=== PATIENT | male | born 1960 | race Caucasian/White ===

== ENCOUNTER 2017-09-25 11:51 | Day surgery (SDC) | payer BC, OTHER ==
[~2017-09-25] VITALS: Ht 188 cm; Wt 96.6 kg
[~2017-09-25 11:51] MED LIST: ANDR1.62 TOP; LISI-542 PO
[2017-09-25] MEDS ORDERED: NS 1,000 ML IV ONE (12:00)
[2017-09-25] MEDS ORDERED: LIDOCAINE 2% INJ 100 MG/5 ML SDV (FOR ANES.) As Ordered ONE (12:28)
[2017-09-25] MEDS ORDERED: PROPOFOL 200 MG/20 ML VIAL As Ordered ONE (12:28)
--- NOTE | 2017-09-25 12:36 | ROOR ---
Patient Name: Omid Roland Procedure Date: 09/25/2017 12:17 PM Date of : 1960 Age: 57 Room: [facility] Gender: Male Note Status: Finalized Procedure: Colonoscopy Indications: Rectal bleeding Providers: Claus Johnson Jr, MD Referring MD: Khadijah Avila DO Requesting Provider: Medicines: Propofol per Anesthesia Complications: No immediate complications. Procedure: Pre-Anesthesia Assessment: - Prior to the procedure, a History and Physical was performed, and patient medications and allergies were reviewed. The patient is competent. The risks and benefits of the procedure and the sedation options and risks were discussed with the patient. All questions were answered and informed consent was obtained. Patient identification and proposed procedure were verified by the physician and the nurse in the pre-procedure area and in the procedure room. Mental Status Examination: alert and oriented. Airway Examination: normal oropharyngeal airway and neck mobility. Respiratory Examination: clear to auscultation. CV Examination: normal. ASA Grade Assessment: II - A patient with mild systemic disease. After reviewing the risks and benefits, the patient was deemed in satisfactory condition to undergo the procedure. The anesthesia plan was to use moderate sedation / analgesia (conscious sedation). Immediately prior to administration of medications, the patient was re-assessed for adequacy to receive sedatives. The heart rate, respiratory rate, oxygen saturations, blood pressure, adequacy of pulmonary ventilation, and response to care were monitored throughout the procedure. The physical status of the patient was re-assessed after the procedure. The Colonoscope was introduced through the anus and advanced to the cecum, identified by appendiceal orifice and ileocecal valve. The colonoscopy was performed without difficulty. The patient tolerated the procedure well. The quality of the bowel preparation was adequate and good. Findings: Non-bleeding external and internal hemorrhoids were found during endoscopy. The hemorrhoids were moderate, Grade II (internal hemorrhoids that prolapse but reduce spontaneously) and Grade III (internal hemorrhoids that prolapse but require manual reduction). The rectum, recto-sigmoid colon, sigmoid colon, descending colon, transverse colon, ascending colon, cecum, appendiceal orifice and ileocecal valve appeared normal. Impression: - Non-bleeding external and internal hemorrhoids. - The rectum, recto-sigmoid colon, sigmoid colon, descending colon, transverse colon, ascending colon, cecum, appendiceal orifice and ileocecal valve are normal. - No specimens collected. Recommendation: - Discharge patient to home (ambulatory). - Repeat colonoscopy in 5 years for surveillance. Claus Johnson MD Claus Johnson Jr, MD 09/25/2017 12:36:11 PM This report has been signed electronically. Number of Addenda: 0 Note Initiated On: 09/25/2017 12:17 PM Estimated Blood Loss: Estimated blood loss: none.
[2017-09-25 12:51] VITALS: BP 137/81
== END 2017-09-25 13:06 | disposition home or self-care (01) ==
LOC: M OPP 11:51 → EDSTATUS 13:00 → M OPP 13:06
PROVIDERS: ATTEND Surgery
DX: K64.1 Second degree hemorrhoids (principal); K64.2 Third degree hemorrhoids; I10 Essential (primary) hypertension; C62.90 Malignant neoplasm of unspecified testis, unspecified whether descended or undescended; F17.290 Nicotine dependence, other tobacco product, uncomplicated; Z79.899 Other long term (current) drug therapy; Z88.0 Allergy status to penicillin; Z80.0 Family history of malignant neoplasm of digestive organs; Z86.010 Personal history of colon polyps

== ENCOUNTER → 2021-11-01 | Outpatient (CLI) | payer OTHER ==
[~2021-11-01] MED LIST changes: -LISI-542 PO; +LISI-898 PO
--- NOTE | 2021-11-02 06:43 | ECHO ---
ECHOCARDIOGRAM DATE OF PROCEDURE: 11/01/2021 Age: 61 Gender: Male Height: 74 inches Weight: 213 pounds Body Surface Area: 2.23 sq m Outpatient REFERRING PHYSICIAN: Khadijah Avila MD INDICATION: Palpitations MEASUREMENTS: 2D Measurements: RV - 4.1 cm LV - 4.9 cm Septum 1.2 cm Posterior wall 1.2 cm Aortic Root 3.3 cm LA - 4.1 cm LVEF 75% Doppler Measurements: AV - 1.5 m/s LVOT - 1.2 m/s LVOT diameter 2.2 cm MV-E 89, A 89, E/A ratio 1 Early mitral deceleration time 215 msec E prime medial 8, A prime medial 12, E prime lateral 13 PV 0.9 m/s Pulmonary artery acceleration time 116 msec RVSP 41 mmHg IVC - 1.8 cm COMMENTS: Normal sinus rhythm without intraventricular conduction disturbance. M-mode and 2-dimensional echocardiography was performed with pulse, continuous wave, color flow, and tissue Doppler studies. Borderline left ventricular hypertrophy with hyperkinetic wall motion. Mildly dilated left atrium with currently normal Doppler assessment of left ventricular (LV) diastolic function and estimated mean left atrial pressure. Borderline dilated right heart chambers with normal wall motion and Doppler evidence of moderate pulmonary hypertension. Normal inferior vena cava (IVC) size and collapse against an elevated central venous pressure. Normal aortic dimensions. Subtle aortic valvular sclerosis without stenosis and only trace insufficiency. Normal-appearing mitral valvular apparatus and leaflet excursion with no posterior systolic buckling. Very mild mitral insufficiency [physiologic]. Normal-appearing tricuspid valve with mild insufficiency [physiologic]. No apparent intracardiac mass or pericardial effusion.
== END ==
LOC: M CARPUL 14:24
PROVIDERS: ATTEND Family Medicine
DX: R00.2 Palpitations (principal); R89.9 Unspecified abnormal finding in specimens from other organs, systems and tissues; I51.7 Cardiomegaly

== ENCOUNTER → 2022-07-15 | Outpatient (CLI) | payer OTHER ==
[~2022-07-15] MED LIST changes: -LISI-898 PO; +LISI5TAB11 PO
== END ==
LOC: M SLEEP HO 06-26 11:33
PROVIDERS: ATTEND Internal Medicine Cardiovascular Disease
DX: R06.83 Snoring (principal)

== ENCOUNTER 2024-01-15 10:24 | Day surgery (SDC) | payer OTHER ==
[~2024-01-15] VITALS: Ht 188 cm; Wt 85.1 kg
[~2024-01-15 10:24] MED LIST changes: +AMLO2.5T3 PO
[2024-01-15] MEDS: NS 1,000 ML IV ONE (10:42)
[2024-01-15 11:25] VITALS: TEMP 96.5
[2024-01-15 11:49] VITALS: BP 104/60; O2SAT 99
== END 2024-01-15 11:58 | disposition home or self-care (01) ==
LOC: M OPP 10:24
PROVIDERS: ATTEND Surgery
DX: Z12.11 Encounter for screening for malignant neoplasm of colon (principal); K63.5 Polyp of colon; Z86.010 Personal history of colon polyps; I10 Essential (primary) hypertension; Z79.899 Other long term (current) drug therapy; Z85.47 Personal history of malignant neoplasm of testis; Z92.3 Personal history of irradiation; Z88.0 Allergy status to penicillin